=== PATIENT | male | born 1955 | race Caucasian/White ===

== ENCOUNTER 2021-08-24 18:10 | Outpatient (CLI) | payer MEDICARE | END 2021-08-24 18:11 | disposition EMS.NT | LOC: EMS 18:10 | DX: Z03.89 Encounter for observation for other suspected diseases and conditions ruled out (principal) ==

== ENCOUNTER 2023-11-23 16:38 | Inpatient (IN) | payer MEDICARE ==
[2023-11-23] MEDS ORDERED: IOVERSOL 320 100 ML VIAL IVP ONE (17:07)
--- NOTE | 2023-11-23 17:10 | ED Physician Documentation ---
PD HPI FOCAL NEURO - Stated complaint Stated Complaint: SLURRED SPEECH - Chief complaint Chief Complaint: Neuro - History obtained from History obtained from: Patient, Family - History of Present Illness Timing - onset: Yesterday Timing - details: Abrupt onset Severity of deficit: Mild Weakness: Face, Arm, Hand, Leg, Foot, Right Numbness: No: Face, Arm, Hand, Leg, Foot, Right, Left Associated symptoms: No: Headache, Nausea / vomiting, Seizure, Syncope, Fall, Head injury, Chest pain, Neck pain, Back pain, Fever Contributing factors: negative: Anticoagulated, Vascular dz, Atrial fibrillation, Prosthetic heart valve Baseline status: positive: A&OX3, ambulatory, indep Recently seen: Not recently seen - Additional information Additional information: Patient is a 68-year-old male who presents to the emergency department with right-sided weakness and slurred speech since 2 PM yesterday.'s not improved over the past 24 hours. Decided to come into the hospital today because he had not gotten better. He states he drinks alcohol daily, usually "a sixpack". Review of Systems Constitutional: denies: Fever, Chills GI: denies: Nausea, Vomiting, Diarrhea Skin: denies: Rash Musculoskeletal: denies: Neck pain, Back pain Neurologic: denies: Headache PD PAST MEDICAL HISTORY - Past Medical History Past Medical History: Yes Cardiovascular: Hypertension, High cholesterol Endocrine/Autoimmune: Type 2 diabetes : Kidney stones - Past Surgical History Past Surgical History: Yes Ortho: Shoulder arthroplasty - Present Medications Home Medications: Ambulatory Orders Medication Instructions Recorded Confirmed Atorvastatin [Lipitor] 40 DAILY 11/23/23 Empagliflozin [Jardiance] 12.5 mg DAILY 11/23/23 11/23/23 Gabapentin [Neurontin] 300 TID 11/23/23 Losartan [Cozaar] 25 DAILY 11/23/23 Meloxicam DAILY 11/23/23 Metformin HCl [Metformin ER BID 11/23/23 Gastric] Tamsulosin [Flomax] DAILY 11/23/23 - Allergies Allergies/Adverse Reactions: Allergies Allergy/AdvReac Type Severity Reaction Status Date / Time No Known Drug Allergies Allergy Verified 11/23/23 17:34 - Social History Does the pt smoke?: No Smoking Status: Never smoker Does the pt drink ETOH?: Yes Does the pt have substance abuse?: Yes Substance Use and Type: Marijuana - Immunizations Immunizations are current?: No PD ED PE NORMAL - Vitals Vital signs reviewed: Yes - General General: Alert and oriented X 3, No acute distress - HEENT HEENT: PERRL, Moist mucous membranes - Neck Neck: Supple, no meningeal sign - Cardiac Cardiac: RRR, Strong equal pulses - Respiratory Respiratory: No respiratory distress, Clear bilaterally - Abdomen Abdomen: Soft, Non tender, Non distended - Derm Derm: Warm and dry - Extremities Extremities: No edema, No calf tenderness / cord - Neuro Neuro: Alert and oriented X 3, Other (Right-sided facial droop, right-sided arm and leg weakness. No sensory deficits. Mild dysarthria) Eye Opening: Spontaneous Motor: Obeys Commands Verbal: Oriented GCS Score: 15 - Psych Psych: Normal mood, Normal affect NIHSS - Time Time: 17:00 - Level of Consciousness Level of consciousness: (0) Alert, Keenly responsive LOC Questions: (0) Answers both Q's correct LOC Commands: (0) Performs both correctly - Gaze Best Gaze: (0) Normal - Visual Visual: (0) No loss - Facial Palsy Facial Palsy: (1) Minor paralysis - Motor Arms (both separate) Motor Arm (right): (1) Drift Motor Arm (left): (0) No drift - Motor Legs (both separate) Motor Leg (right): (1) Drift Motor Leg (left): (0) No drift - Limb Ataxia Limb Ataxia: (0) Absent - Sensory Sensory: (0) Normal - Best Language Best Language: (0) No aphasia - Dysarthria Dysarthria: (1) [id number] dysarthria - Extinction and Inattention (formally neg Extinction and inattention: (0) No abnormality - Total Score/Results Total Score/Result: 4 Results - Vitals Vitals: Vital Signs - 24 hr 11/23/23 11/23/23 11/23/23 16:41 17:10 18:00 Temperature 36.8 C Heart Rate 81 80 71 Respiratory 16 16 16 Rate Blood Pressure 150/83 H 168/99 H 150/102 H O2 Saturation 96 95 95 11/23/23 11/23/23 11/23/23 18:30 19:00 20:00 Temperature Heart Rate 71 69 68 Respiratory 13 14 15 Rate Blood Pressure 162/95 H 153/83 H 153/99 H O2 Saturation 95 95 93 11/23/23 21:00 Temperature Heart Rate 67 Respiratory 16 Rate Blood Pressure 124/75 O2 Saturation 94 Oxygen O2 Source Room air - EKG (time done) 1934 EKG releavant findings:: EKG personally interpreted by author of this note. Relevant findings are: Rate: Rate (enter#) (72) Rhythm: NSR [place]: Normal Intervals: Prolonged ID QRS: Normal Ischemia: Normal ST segments, Q waves (III, avf) - Labs Labs: Laboratory Tests 11/23/23 11/23/23 11/23/23 17:07 17:07 17:07 WBC 4.9 RBC 5.89 Hgb 17.7 Hct 53.6 H MCV 91.0 MCH 30.1 MCHC 33.0 RDW 13.5 Plt Count 161 MPV 10.1 Neut # (Auto) 3.1 Lymph # (Auto) 1.4 L [place] # (Auto) 0.3 Eos # (Auto) 0.0 Baso # (Auto) 0.0 Absolute Nucleated RBC 0.00 Nucleated RBC % 0.0 PT 10.3 INR 1.0 APTT 30.6 Sodium 135 Potassium 4.0 Chloride 98 L Carbon Dioxide 28 Anion Gap 9.0 BUN 19 Creatinine 1.5 H Estimated GFR (MDRD) 46 L Glucose 266 H Calcium 9.8 Total Bilirubin 0.4 AST 12 ALT 19 Alkaline Phosphatase 61 Total Protein 6.7 Albumin 4.3 Globulin 2.4 Albumin/Globulin Ratio 1.8 Lipase 54 Urine Color Urine Clarity Urine pH Ur Specific [place] Urine Protein Urine Glucose (UA) Urine Ketones Urine Occult Blood Urine Nitrite Urine Bilirubin Urine Urobilinogen Ur Leukocyte Esterase Urine RBC Urine WBC Ur Squamous Epith Cells Urine Bacteria Ur Microscopic Review Urine Culture Comments Ethyl Alcohol 26.3 11/23/23 17:35 WBC RBC Hgb Hct MCV MCH MCHC RDW Plt Count MPV Neut # (Auto) Lymph # (Auto) [place] # (Auto) Eos # (Auto) Baso # (Auto) Absolute Nucleated RBC Nucleated RBC % PT INR APTT Sodium Potassium Chloride Carbon Dioxide Anion Gap BUN Creatinine Estimated GFR (MDRD) Glucose Calcium Total Bilirubin AST ALT Alkaline Phosphatase Total Protein Albumin Globulin Albumin/Globulin Ratio Lipase Urine Color LIGHT YELLOW Urine Clarity HAZY Urine pH 5.5 Ur Specific [place] 1.015 Urine Protein 30 H Urine Glucose (UA) >=1000 H Urine Ketones NEGATIVE Urine Occult Blood SMALL H Urine Nitrite NEGATIVE Urine Bilirubin NEGATIVE Urine Urobilinogen 0.2 (NORMAL) Ur Leukocyte Esterase NEGATIVE Urine RBC 6-10 H Urine WBC 4-5 Ur Squamous Epith Cells NONE SEEN Urine Bacteria None Seen Ur Microscopic Review INDICATED Urine Culture Comments NOT INDICATED Ethyl Alcohol - Rads (name of study) CT head Relevant Findings:: Final report received, See rad report CT angiogram head and neck Relevant Findings:: Final report received, See rad report PD Medical Decision Making - ED course Complexity details: reviewed results, re-evaluated patient, considered differential, d/w patient, d/w family, d/w automation consultant ED course: Patient is a 68-year-old male with dysarthria and right-sided weakness. Started yesterday. No acute findings on head CT or CT angiogram of the head and neck. EKG is sinus rhythm. He is not anticoagulated, but he did speak to his doctor today who told him to take 4 baby aspirin prior to arrival in the emergency department. Patient will need to be admitted to the hospital overnight, PT/OT consult in the morning and MRI of the brain tomorrow. Discussed the case with the hospitalist, Dr. Tovar who accepts. This document was made in part using voice recognition software. While efforts are made to proofread this document, sound alike and grammatical errors may occur. Departure - Departure Disposition: 66 [facility] DC/Xfer Clinical Impression: Cerebrovascular accident (CVA) Qualifiers: CVA mechanism: unspecified Qualified Code(s): I63.9 - Cerebral infarction, unspecified Condition: Stable Forms: PCP List
[2023-11-23 17:17] LABS: BASOPHILS % (AUTO) 0.6 %; EOSINOPHILS % (AUTO) 0.6 %; HCT - HEMATOCRIT 53.6 % (42.0-52.0); HGB - HEMOGLOBIN 17.7 g/dL (14.0-18.0); LYMPHOCYTES # (AUTO) 1.4 10^3/uL (1.5-3.5); LYMPHOCYTES % (AUTO) 29.1 %; MEAN CORPUSCULAR HEMOGLOBIN 30.1 pg (27.0-31.0); MEAN PLATELET VOLUME 10.1 fL (7.4-11.4); MONOCYTES # (AUTO) 0.3 10^3/uL (0.0-1.0); MONOCYTES % (AUTO) 6.5 %; NEUTROPHILS # (AUTO) 3.1 10^3/uL (1.5-6.6); NEUTROPHILS % (AUTO) 62.8 %; PLT - PLATELET COUNT 161 10^3/uL (130-450); RED BLOOD COUNT 5.89 10^6/uL (4.70-6.10); RED CELL DISTRIBUTION WIDTH 13.5 % (12.0-15.0); WHITE BLOOD COUNT 4.9 x10^3/uL (4.8-10.8)
[2023-11-23 17:27] LABS: PARTIAL THROMBOPLASTIN TIME 30.6 secs (24.9-33.3)
[2023-11-23 17:31] LABS: PT - PROTHROMBIN TIME 10.3 secs (9.9-12.6)
[2023-11-23 17:34] LABS: ALBUMIN 4.3 g/dL (3.2-5.5); ALBUMIN/GLOBULIN RATIO 1.8 (1.0-2.2); BILIRUBIN,TOTAL 0.4 mg/dL (0.2-1.0); CALCIUM 9.8 mg/dL (8.5-10.3); CREATININE 1.5 mg/dL (0.6-1.3); ETOH - ETHANOL 26.3 mg/dL; TOTAL PROTEIN 6.7 g/dL (6.4-8.9)
[2023-11-23 17:46] LABS: BILIRUBIN,URINE NEGATIVE (NEGATIVE); GLUCOSE, URINE (UA) >=1000 mg/dL (NEGATIVE); KETONES,URINE (UA) NEGATIVE (NEGATIVE); LEUKOCYTE ESTERASE, URINE NEGATIVE (NEGATIVE); NITRITE,URINE NEGATIVE (NEGATIVE); OCCULT BLOOD,URINE SMALL (NEGATIVE); PH,URINE 5.5 PH (5.0-7.5); PROTEIN,URINE 30 mg/dL (NEGATIVE); UROBILINOGEN,URINE 0.2 (NORMAL) E.U./dL (NORMAL)
[2023-11-23 17:47] LABS: CLARITY,URINE HAZY (CLEAR)
[2023-11-23 17:55] LABS: BACTERIA,URINE None Seen /HPF (None Seen); SQUAMOUS EPITHELIAL CELL,UR NONE SEEN (<= Few)
--- NOTE | 2023-11-23 19:03 | CT Report ---
PROCEDURE: Angio Head/Neck INDICATIONS: R sided weakness x 24 hours, slurred speech TECHNIQUE: Helical axial CT of the head and neck was obtained during the arterial phase of a intrave nous contrast injection utilizing an angiographic protocol. Multiplanar traditional and MIP reformat s were also obtained. Dose reduction techniques included either automated exposure control or adjustm ent of exposure parameters. COMPARISON: None. FINDINGS: Cerebral CT Angiogram: Internal carotid arteries: Calcified atherosclerotic plaque in the cavernous segments of both interna l carotid arteries results in moderate stenosis on bilaterally. No aneurysm or large vessel occlusion . Anterior cerebral arteries: Unremarkable. No significant stenosis. No occlusion. No aneurysm. Middle cerebral arteries: Unremarkable. No significant stenosis. No occlusion. No aneurysm. Posterior cerebral arteries: Unremarkable. No significant stenosis. No occlusion. No aneurysm. Basilar artery: Unremarkable. No significant stenosis. No occlusion. No aneurysm. Vertebral arteries: Unremarkable as visualized. Dural venous sinuses: Unremarkable given phase of enhancement. Other: Arterial phase appearance of the brain parenchyma is unremarkable. Neck CT Angiogram: Internal carotid arteries: Unremarkable. No significant stenosis. No dissection or occlusion. Common carotid arteries: Unremarkable. No significant stenosis. No dissection or occlusion. External carotid arteries: Unremarkable. No occlusion. Vertebral arteries: Unremarkable. No significant stenosis. No dissection or occlusion. Aortic Arch and Mediastinum: Partially visualized aortic arch unremarkable without evidence of aneury sm. Origins of the great vessels unremarkable. Other: Arterial phase soft tissues of the neck are unremarkable. IMPRESSION: No evidence of large vessel occlusion, aneurysm or vascular malformation. Atherosclerotic calcification the cavernous sections of both internal carotid arteries results in mod erate bilateral stenosis distally. No proximal ICA stenosis. Reviewed by: Javid Vargas MD on 11/23/2023 6:01 PM [place] Approved by: Javid Vargas MD on 11/23/2023 6:01 PM [facility] Station ID: [id number]
--- NOTE | 2023-11-23 19:13 | CT Report ---
PROCEDURE: Head WO INDICATIONS: R sided weakness x 24 hours, slurred speech TECHNIQUE: Noncontrast 4.5 mm thick angled axial sections acquired from the foramen magnum to the vertex. For r adiation dose reduction, the following was used: automated exposure control, adjustment of mA and/or kV according to patient size. COMPARISON: None. FINDINGS: Image quality: Diagnostic CSF spaces: Basal cisterns are patent. Lateral ventricles are symmetric. Volume: Vascular calcifications. Periventricular white matter disease is commonly seen with chronic m icroangiopathy. Volume loss is present. These findings are mild. Brain: No intracranial hemorrhage. Sumner-white differentiation is grossly maintained. Craniofacial structures: No displaced fracture. Sinuses are clear. Orbits are intact. IMPRESSION: No acute intracranial abnormality. If there is high concern for infarct, consider MRI. Reviewed by: Jabari Morrison MD on 11/23/2023 7:12 PM PST Approved by: Jabari Morrison MD on 11/23/2023 7:12 PM [facility] Station ID: [id number]
[2023-11-23] MEDS: ASPIRIN CHEW 81 MG TABLET PO STA (19:28)
[2023-11-23] MEDS: IOVERSOL 320 100 ML VIAL IVP ONE (20:24)
--- NOTE | 2023-11-23 23:44 | HISTORY & PHYSICAL EXAMINATION ---
Chief Complaint - Chief Complaint Chief Complaint: slurred speech History of Present Illness - Admitted From Admitted From:: home - History Obtained From History obtained from: patient + son Exam Limitations: telemedicine - History of Present Illness HPI Comment/Other: Mr Hall is a 68 yo M with hx DM II, HTN, BPH. Presents to ER with c/o right arm weakness with numbness and tingling in R hand/fingers, and slurred speech. Symptom onset ~noon yesterday (11/21). No prior history of CVA. Pt denies diplopia. He has blurred vision at times but this was unrelated to yesterday's event. He still has difficulty with speech since yesterday. Denies headache but has some mild dizziness "feels drunk". Denies cp, abd pain, n/v, f/c. Denies hearing loss. No facial droop noted (per his son at bedside). History - Past Medical History Cardiovascular: reports: Hypertension, High cholesterol Endocrine/Autoimmune: reports: Type 2 diabetes : reports: Benign prostate hypertrophy, Kidney stones - Past Surgical History Ortho: reports: Shoulder arthroplasty Meds/Allgy - Home Medications Home Medications: Ambulatory Orders Medication Instructions Recorded Confirmed Atorvastatin [Lipitor] 40 DAILY 11/23/23 Empagliflozin [Jardiance] 12.5 mg DAILY 11/23/23 11/23/23 Gabapentin [Neurontin] 300 TID 11/23/23 Losartan [Cozaar] 25 DAILY 11/23/23 Meloxicam DAILY 11/23/23 Metformin HCl [Metformin ER BID 11/23/23 Gastric] Tamsulosin [Flomax] DAILY 11/23/23 - Allergies Allergies/Adverse Reactions: Allergies Allergy/AdvReac Type Severity Reaction Status Date / Time No Known Drug Allergies Allergy Verified 11/23/23 17:34 Review of Systems - Constitutional Constitutional: denies: Fatigue, Fever, Chills - Eyes Eyes: reports: Blurred vision ((not new)). denies: Dipolpia - Ears, Nose & Throat Ears, Nose & Throat: denies: Ear pain, Hearing loss, Hearing aids - Cardiovascular Cariovascular: denies: Irregular heart rate, Palpitations, Chest pain - Respiratory Respiratory: denies: Cough, Sputum production, SOB at rest - Gastrointestinal Gastrointestinal: denies: Abdominal pain, Abdominal distention, Constipation, Diarrhea - Genitourinary Genitourinary: denies: Dysuria, Frequency - Musculoskeletal Musculoskeletal: denies: Muscle pain, Back pain - Integumentary Integumentary: denies: Rash, Pruritis - Neurological Neurological: reports: Focal weakness, Dizziness, Numbness, Slurred speech. denies: Headache - All Other Systems All Other Systems: reports: Reviewed and negative Prior Level of Functionality: ambulates independently, sometimes with a cane Exam - Vital Signs Reviewed Vital Signs: Yes Vital Signs: Vital Signs x48h Temp Pulse Resp BP Pulse Ox 11/23/23 21:00 67 16 124/75 94 11/23/23 20:00 68 15 153/99 H 93 11/23/23 19:00 69 14 153/83 H 95 11/23/23 18:30 71 13 162/95 H 95 11/23/23 18:00 71 16 150/102 H 95 11/23/23 17:10 80 16 168/99 H 95 11/23/23 16:41 36.8 C 81 16 150/83 H 96 - Physical Exam General Appearance: positive: No acute distress, Alert Eyes Bilateral: positive: Normal inspection ENT: positive: ENT inspection nml Neck: positive: Nml inspection Respiratory: positive: No respiratory distress Neurologic/Psychiatric: positive: Oriented x3, Mood/affect nml, Weakness (R arm weak), Sensory loss (R hand/fingers feel numb/tingling), Slurred/abnml speech. negative: Facial droop Conclusion/Plan - Lab Results Lab results reviewed: Yes Fish Bones: 11/23/23 17:07 11/23/23 17:07 - Diagnostic Imaging Results Diagnostic Imaging Results: positive: Final report reviewed - EKG Results EKG Interpreted Independently: Yes - Other Other Results/Comments: Assessment/Plan: Right arm weakness and numbness with slurred speech -Symptom onset >24 hours prior to presentation -Suspected CVA -CT head and CTA head/neck unremarkable -Pt took ASA 324 mg -Continue lipitor, high dose -MRI brain -Echocardiogram -PT/OT/[facility] consults DM II -Continue Lantus + SSI HTN -Hold, permissive HTN for now 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
[2023-11-23] MEDS ORDERED: LABETALOL 20 MG/4 ML SYRINGE IVP PRN (23:50)
[2023-11-23] MEDS ORDERED: SODIUM CHLORIDE FLUSH 0.9% 10 ML SYRINGE IVP PRN (23:55)
[2023-11-24] MEDS ORDERED: INSULIN LISPRO 300 UNIT/3 ML PEN SUBQ SCH (08:00)
[2023-11-24 08:42] LABS: ESTIMATED AVERAGE GLUCOSE 212 mg/dL (70-100)
[2023-11-24] MEDS ORDERED: INSULIN GLARGINE-YFGN 300 UNIT/3 ML PEN SUBQ SCH (09:00)
[2023-11-24] MEDS: SODIUM CHLORIDE FLUSH 0.9% 10 ML SYRINGE IVP SCH (09:05)
[2023-11-24] MEDS: ENOXAPARIN 40 MG/0.4 ML SYRINGE SUBQ SCH (09:31)
[2023-11-24] MEDS: ASPIRIN EC 81 MG TABLET PO SCH (09:32)
[2023-11-24] MEDS: INSULIN REGULAR HUMAN 300 UNIT/3 ML VIAL SUBQ SCH (12:06)
--- NOTE | 2023-11-24 12:15 | MRI Report ---
PROCEDURE: Brain WO INDICATIONS: stroke TECHNIQUE: Noncontrast axial T1 spin echo, axial T2 fast spin echo, sagittal and axial FLAIR, coronal T2 fast sp in echo, axial gradient echo, axial diffusion and ADC through the brain. COMPARISON: Correlation is made with CTs performed 11/23/2023. FINDINGS: Image quality: Diagnostic. CSF Spaces: Basal cisterns are patent. No extra-axial fluid collections. Ventricles are normal in size and shape. Brain: There is abnormal diffusion-weighted signal seen within the paramedian left cristobal, as on serie s 12 image 32. There is associated dark signal seen on the ADC map. There is developing T2-weighted s ignal seen at this site. Age-appropriate brain parenchymal volume loss and chronic small vessel ischemic change can be seen. No intracranial masses or hemorrhage. [place]/white matter interface is normal. Brainstem appears norm al. Normal intravascular flow voids are present. Skull and face: Calvarium has normal marrow signal. Orbits appear normal. Sinuses: Sinuses and mastoids are clear. IMPRESSION: There is a subacute infarction seen within the paramedian aspect of the left cristobal. Reviewed by: Souleymane Le MD on 11/24/2023 11:13 AM [place] Approved by: Souleymane Le MD on 11/24/2023 11:13 AM [facility] Station ID: [id number]
[2023-11-24] MEDS ORDERED: LABETALOL 20 MG/4 ML SYRINGE IVP PRN (15:09)
--- NOTE | 2023-11-24 15:47 | PROVIDER PROGRESS NOTE ---
Subjective - Prog Note Date Prog Note Date: 11/24/23 Prog Note Time: 15:46 - Subjective Pt reports feeling: Improved (States the right hand numbness and tingling still present but a bit improved, emotional lability noted, on insulin at home, sugars run ~160s on average. Denies pain, blurred vision, headache. Did ok getting OOB per staff. Spouse at bedside.) Subjective: This patient requires hospitalization to evaluate and treat acute CVA. Anticipated discharge is TBD - SNF vs home with home health Current Medications - Current Medications Current Medications: Active Medications Generic Name Dose Route Start Last Admin Trade Name Freq PRN Reason Stop Dose Admin Aspirin 81 mg 11/24/23 09:00 11/24/23 09:32 Aspirin Ec 81 Mg Tablet PO 81 mg DAILY JONAH Administration Atorvastatin Calcium 80 mg 11/24/23 21:00 Atorvastatin 40 Mg Tablet PO QPM JONAH Enoxaparin Sodium 40 mg 11/24/23 09:00 11/24/23 09:31 Enoxaparin 40 Mg/0.4 Ml Syringe SUBQ 40 mg DAILY JONAH Administration Insulin Human Lispro 1 - 5 unit 11/24/23 17:00 Insulin Lispro 300 Unit/3 Ml Pen SUBQ 0800,1200,1700,2100 [facility] Protocol Labetalol HCl 10 mg 11/24/23 15:09 Labetalol 20 Mg/4 Ml Syringe IVP Q10M PRN SBP >220 OR DBP>120 Sodium Chloride 10 ml 11/23/23 23:55 Sodium Chloride Flush 0.9% 10 Ml Syringe IVP PRN PRN NEEDED PER PROVIDER ORDERS Sodium Chloride 10 ml 11/24/23 01:00 11/24/23 09:32 Sodium Chloride Flush 0.9% 10 Ml Syringe IVP 10 ml 0100,0900,1700 JONAH Administration Atorvastatin [Lipitor] 40 mg PO HS 11/23/23 Empagliflozin [Jardiance] 12.5 mg DAILY 11/23/23 Gabapentin [Neurontin] 300 TID 11/23/23 Losartan [Cozaar] 25 mg PO DAILY 11/23/23 Meloxicam 15 mg PO DAILY 11/23/23 Metformin HCl [Metformin ER Gastric] 500 mg PO BIDWM 11/23/23 Tamsulosin [Flomax] 0.4 mg PO DAILY 11/23/23 Objective - Vital Signs/Intake & Output Reviewed Vital Signs: Yes Vital Signs: Vital Signs x48h Temp Pulse Pulse Pulse Pulse Resp BP 11/24/23 15:34 36.7 C 90 14 11/24/23 13:50 110 H 165/102 H 11/24/23 13:00 97 111 H 109 H 11/24/23 07:59 36.7 C 81 16 146/92 H BP BP BP BP Pulse Ox 11/24/23 15:34 167/118 H 94 11/24/23 13:50 11/24/23 13:00 196/121 H 190/110 H 181/112 H 11/24/23 07:59 96 Intake & Output: Intake & Output 11/21/23 11/22/23 11/23/23 11/24/23 23:59 23:59 23:59 23:59 Output Total 0 Balance 0 - Objective General Appearance: positive: No acute distress, Alert Eyes Bilateral: positive: Normal inspection, PERRL, EOMI (no nystagmus), No lid inflammation, No scleral icterus, Other (conjunctivae mildly injected bilaterally) ENT: positive: ENT inspection nml, Pharynx nml Neck: positive: Nml inspection Respiratory: positive: Chest non-tender, No respiratory distress, Breath sounds nml Cardiovascular: positive: Regular rate & rhythm, Other (murmur present) Peripheral Pulses: 2+ Dorsalis pedis (R), 2+ Dorsalis pedis (L) Abdomen: positive: Non-tender, No organomegaly, Nml bowel sounds, No distention Skin: positive: Color nml, No rash, Warm, Dry Extremities: positive: Non-tender, Nml appearance, No pedal edema Neurologic/Psychiatric: positive: Oriented x3, Motor nml (Strength: RUE 4/5, LUE 5/5, RLE 4/5, LLE 5/5. No tongue deviation. No facial droop.), Slurred/abnml speech (Dysarthria noted), Other (No pronator drift or peripheral vision impairment. Shoulder shrug uneven with lag on right. Facial sensation normal bilaterally. Sternocleidomastoid muscle strength against resistance decreased on right. Normal finger to nose. Rapid alternating movements are slow but seem intact. Emotionally labile.) - Lab Results Fish Bones: 11/23/23 17:07 03/03/24 17:07 Other Labs: Lab Results x24hrs 11/24/23 11/24/23 11/24/23 Range/Units 14:02 11:54 05:59 WBC (4.8-10.8) x10^3/uL RBC (4.70-6.10) 10^6/uL Hgb (14.0-18.0) g/dL Hct (42.0-52.0) % MCV (80.0-94.0) fL MCH (27.0-31.0) pg MCHC (32.0-36.0) g/dL RDW (12.0-15.0) % Plt Count (130-450) 10^3/uL MPV (7.4-11.4) fL Neut # (Auto) (1.5-6.6) 10^3/uL Lymph # (Auto) (1.5-3.5) 10^3/uL Cotton # (Auto) (0.0-1.0) 10^3/uL Eos # (Auto) (0.0-0.7) 10^3/uL Baso # (Auto) (0.0-0.1) 10^3/uL Absolute Nucleated RBC x10^3/uL Nucleated RBC % /100WBC PT (9.9-12.6) secs INR (0.8-1.2) APTT (24.9-33.3) secs Sodium (135-145) mmol/L Potassium (3.5-4.5) mmol/L Chloride (101-111) mmol/L Carbon Dioxide (21-32) mmol/L Anion Gap (6-13) BUN (6-20) mg/dL Creatinine (0.6-1.3) mg/dL Estimated GFR (MDRD) (>89) Glucose (74-104) mg/dL POC Whole Bld Glucose 138 H 133 H (70 - 100) mg/dL Estimat Average Glucose 212 H (70-100) mg/dL Hemoglobin A1c % 9.0 H (4.27-6.07) % Calcium (8.5-10.3) mg/dL Total Bilirubin (0.2-1.0) mg/dL AST (10-42) IU/L ALT (10-60) IU/L Alkaline Phosphatase (42-121) IU/L Total Protein (6.4-8.9) g/dL Albumin (3.2-5.5) g/dL Globulin (2.1-4.2) g/dL Albumin/Globulin Ratio (1.0-2.2) Lipase (11-82) U/L Urine Color Urine Clarity (CLEAR) Urine pH (5.0-7.5) PH Ur Specific [place] (1.002-1.030) Urine Protein (NEGATIVE) mg/dL Urine Glucose (UA) (NEGATIVE) mg/dL Urine Ketones (NEGATIVE) mg/dL Urine Occult Blood (NEGATIVE) Urine Nitrite (NEGATIVE) Urine Bilirubin (NEGATIVE) Urine Urobilinogen (NORMAL) E.U./dL Ur Leukocyte Esterase (NEGATIVE) Urine RBC (0-5) /HPF Urine WBC (0-3) /HPF Ur Squamous Epith Cells (<= Few) Urine Bacteria (None Seen) /HPF Ur Microscopic Review Urine Culture Comments Ethyl Alcohol mg/dL 11/23/23 11/23/23 11/23/23 Range/Units 17:35 17:07 17:07 WBC (4.8-10.8) x10^3/uL RBC (4.70-6.10) 10^6/uL Hgb (14.0-18.0) g/dL Hct (42.0-52.0) % MCV (80.0-94.0) fL MCH (27.0-31.0) pg MCHC (32.0-36.0) g/dL RDW (12.0-15.0) % Plt Count (130-450) 10^3/uL MPV (7.4-11.4) fL Neut # (Auto) (1.5-6.6) 10^3/uL Lymph # (Auto) (1.5-3.5) 10^3/uL Cotton # (Auto) (0.0-1.0) 10^3/uL Eos # (Auto) (0.0-0.7) 10^3/uL Baso # (Auto) (0.0-0.1) 10^3/uL Absolute Nucleated RBC x10^3/uL Nucleated RBC % /100WBC PT 10.3 (9.9-12.6) secs INR 1.0 (0.8-1.2) APTT 30.6 (24.9-33.3) secs Sodium 135 (135-145) mmol/L Potassium 4.0 (3.5-4.5) mmol/L Chloride 98 L (101-111) mmol/L Carbon Dioxide 28 (21-32) mmol/L Anion Gap 9.0 (6-13) BUN 19 (6-20) mg/dL Creatinine 1.5 H (0.6-1.3) mg/dL Estimated GFR (MDRD) 46 L (>89) Glucose 266 H (74-104) mg/dL POC Whole Bld Glucose (70 - 100) mg/dL Estimat Average Glucose (70-100) mg/dL Hemoglobin A1c % (4.27-6.07) % Calcium 9.8 (8.5-10.3) mg/dL Total Bilirubin 0.4 (0.2-1.0) mg/dL AST 12 (10-42) IU/L ALT 19 (10-60) IU/L Alkaline Phosphatase 61 (42-121) IU/L Total Protein 6.7 (6.4-8.9) g/dL Albumin 4.3 (3.2-5.5) g/dL Globulin 2.4 (2.1-4.2) g/dL Albumin/Globulin Ratio 1.8 (1.0-2.2) Lipase 54 (11-82) U/L Urine Color LIGHT YELLOW Urine Clarity HAZY (CLEAR) Urine pH 5.5 (5.0-7.5) PH Ur Specific [place] 1.015 (1.002-1.030) Urine Protein 30 H (NEGATIVE) mg/dL Urine Glucose (UA) >=1000 H (NEGATIVE) mg/dL Urine Ketones NEGATIVE (NEGATIVE) mg/dL Urine Occult Blood SMALL H (NEGATIVE) Urine Nitrite NEGATIVE (NEGATIVE) Urine Bilirubin NEGATIVE (NEGATIVE) Urine Urobilinogen 0.2 (NORMAL) (NORMAL) E.U./dL Ur Leukocyte Esterase NEGATIVE (NEGATIVE) Urine RBC 6-10 H (0-5) /HPF Urine WBC 4-5 (0-3) /HPF Ur Squamous Epith Cells NONE SEEN (<= Few) Urine Bacteria None Seen (None Seen) /HPF Ur Microscopic Review INDICATED Urine Culture Comments NOT INDICATED Ethyl Alcohol 26.3 mg/dL 11/23/23 Range/Units 17:07 WBC 4.9 (4.8-10.8) x10^3/uL RBC 5.89 (4.70-6.10) 10^6/uL Hgb 17.7 (14.0-18.0) g/dL Hct 53.6 H (42.0-52.0) % MCV 91.0 (80.0-94.0) fL MCH 30.1 (27.0-31.0) pg MCHC 33.0 (32.0-36.0) g/dL RDW 13.5 (12.0-15.0) % Plt Count 161 (130-450) 10^3/uL MPV 10.1 (7.4-11.4) fL Neut # (Auto) 3.1 (1.5-6.6) 10^3/uL Lymph # (Auto) 1.4 L (1.5-3.5) 10^3/uL Cotton # (Auto) 0.3 (0.0-1.0) 10^3/uL Eos # (Auto) 0.0 (0.0-0.7) 10^3/uL Baso # (Auto) 0.0 (0.0-0.1) 10^3/uL Absolute Nucleated RBC 0.00 x10^3/uL Nucleated RBC % 0.0 /100WBC PT (9.9-12.6) secs INR (0.8-1.2) APTT (24.9-33.3) secs Sodium (135-145) mmol/L Potassium (3.5-4.5) mmol/L Chloride (101-111) mmol/L Carbon Dioxide (21-32) mmol/L Anion Gap (6-13) BUN (6-20) mg/dL Creatinine (0.6-1.3) mg/dL Estimated GFR (MDRD) (>89) Glucose (74-104) mg/dL POC Whole Bld Glucose (70 - 100) mg/dL Estimat Average Glucose (70-100) mg/dL Hemoglobin A1c % (4.27-6.07) % Calcium (8.5-10.3) mg/dL Total Bilirubin (0.2-1.0) mg/dL AST (10-42) IU/L ALT (10-60) IU/L Alkaline Phosphatase (42-121) IU/L Total Protein (6.4-8.9) g/dL Albumin (3.2-5.5) g/dL Globulin (2.1-4.2) g/dL Albumin/Globulin Ratio (1.0-2.2) Lipase (11-82) U/L Urine Color Urine Clarity (CLEAR) Urine pH (5.0-7.5) PH Ur Specific [place] (1.002-1.030) Urine Protein (NEGATIVE) mg/dL Urine Glucose (UA) (NEGATIVE) mg/dL Urine Ketones (NEGATIVE) mg/dL Urine Occult Blood (NEGATIVE) Urine Nitrite (NEGATIVE) Urine Bilirubin (NEGATIVE) Urine Urobilinogen (NORMAL) E.U./dL Ur Leukocyte Esterase (NEGATIVE) Urine RBC (0-5) /HPF Urine WBC (0-3) /HPF Ur Squamous Epith Cells (<= Few) Urine Bacteria (None Seen) /HPF Ur Microscopic Review Urine Culture Comments Ethyl Alcohol mg/dL - Diagnostic Imaging Diagnostic Imaging Results: positive: Final report reviewed Diagnostic Imaging Comments: CT head negative. CT angio head/neck with no significant stenosis. ABX Reporting Has patient been on IV antibiotics over the past 48 hours?: No Assessment/Plan - Problem List (1) Cerebrovascular accident (CVA) Impression: Presented with R hand numbness/tingling/weakness and slurred speech. His hand feels a bit better and he has mild dysarthria on exam today. He is noted to be emotionally labile. Risk factors for stroke include: HTN, DM2, hyperlipidemia. CT head neg. CT angio head/neck neg for significant stenosis. MRI brain revealed acute infarct in left cristobal Plan: Continue ASA (was not on ASA at home) Continue statin Hold BP meds for permissive HTN Attempt euglycemia Echo done, results pending Continue tele Outpatient referral for Holter/event monitor to eval for afib Outpatient referral to evaluate for VELMA as this can increase CVA risk A1c 9.0 Lipid panel not done as already on statin PT/OT/Speech evals Qualifiers: CVA mechanism: unspecified Qualified Code(s): I63.9 - Cerebral infarction, unspecified (2) Diabetes type 2, uncontrolled Impression: A1c 9.0. On insulin at home. Plan: Continue insulin protocol, aim for sugar control in setting of CVA Qualifiers: Glycemic state: with hyperglycemia Qualified Code(s): E11.65 - Type 2 diabetes mellitus with hyperglycemia (3) Hypertension associated with diabetes Impression: On losartan at home. Plan: hold losartan for permissive HTN (4) Hyperlipidemia Impression: on statin at home. Plan: continue statin Qualifiers: Hyperlipidemia type: mixed hyperlipidemia Qualified Code(s): E78.2 - Mixed hyperlipidemia
[2023-11-24] MEDS: INSULIN LISPRO 300 UNIT/3 ML PEN SUBQ SCH (18:27)
[2023-11-24] MEDS: ATORVASTATIN 40 MG TABLET PO SCH (20:58)
[2023-11-24] MEDS: ACETAMINOPHEN 325 MG TABLET PO PRN (20:58)
[2023-11-25 06:29] LABS: BASOPHILS % (AUTO) 0.5 %; EOSINOPHILS % (AUTO) 0.5 %; HCT - HEMATOCRIT 54.3 % (42.0-52.0); HGB - HEMOGLOBIN 18.5 g/dL (14.0-18.0); LYMPHOCYTES # (AUTO) 1.7 10^3/uL (1.5-3.5); MEAN CORPUSCULAR HEMOGLOBIN 30.4 pg (27.0-31.0); MEAN CORPUSCULAR HGB CONC 34.1 g/dL (32.0-36.0); MEAN CORPUSCULAR VOLUME 89.3 fL (80.0-94.0); MEAN PLATELET VOLUME 10.7 fL (7.4-11.4); MONOCYTES # (AUTO) 0.5 10^3/uL (0.0-1.0); MONOCYTES % (AUTO) 7.7 %; NEUTROPHILS % (AUTO) 64.1 %; PLT - PLATELET COUNT 164 10^3/uL (130-450); RED BLOOD COUNT 6.08 10^6/uL (4.70-6.10); RED CELL DISTRIBUTION WIDTH 13.4 % (12.0-15.0); WHITE BLOOD COUNT 6.2 x10^3/uL (4.8-10.8)
[2023-11-25 06:39] LABS: CALCIUM 9.8 mg/dL (8.5-10.3); CREATININE 1.2 mg/dL (0.6-1.3); MAGNESIUM 1.7 mg/dL (1.7-2.3); PHOSPHORUS 3.1 mg/dL (2.5-5.0); POTASSIUM 3.9 mmol/L (3.5-4.5)
--- NOTE | 2023-11-25 11:00 | PHARMACY PROGRESS NOTE ---
- Best Possible Medication History Admit Date and Time: 11/24/23 1023 Processed by: Nursing Medications reviewed in ED?: Yes Medication History completed: No Patient Interview: Pt unable to participate Secondary Source(s): Insurance records (X4 ATTEMPTS FOR PT MED REC. MED REC COMPLETED UPON INSURNACE HX.) As the person ultimately responsible for medication therapy, providers are able to order a medication from an existing home medication list in [facility] via the "Reconcile Routine" prior to Confirmation of that medication by web support engineer. Such practice is discouraged except when the physician, in their clinical j udgment, deems that a medical need exists for a medication without regard to previous use.
[2023-11-25] MEDS: INSULIN LISPRO 300 UNIT/3 ML PEN SUBQ SCH (11:46)
--- NOTE | 2023-11-25 13:26 | Discharge Plan ---
Discharge Plan Problem Reviewed?: Yes Disposition: Home, Self Care Prescriptions: Aspirin EC [Ecotrin] 81 mg PO DAILY #30 tab Clopidogrel [Plavix] 75 mg PO DAILY 21 Days #21 tab Diet: Diabetic (Low sodium (<2g per day), low fat) Activity Restrictions: Activity as Tolerated Shower Restrictions: No Driving Restrictions: No Weight Bearing: Full Weight Instruction Topics: Stroke Ischemic, Clopidogrel Bisulfate Oral tablet Health Concerns: Please follow up with your PCP for better blood pressure control, better DM control. Avoid alcohol, eat healthy diet with low salt, low fat, please excises regularly, at least 3 times a week, 30min to 1hour each time Plan of Treatment: You will be on two antiplatelets: Aspirin and Plavix, take both for 21 days, then just take aspirin for stroke secondary prevention. Please hold Meloxicam when you take Plavix to avoid increased risk of bleeding. Please continue take Lipitor for cholesterol control Continue take your antihypertensive medication and DM treatment Please follow up with outpatient physical therapy and occupational therapy. Speech therapy is referred as well. Please follow up with your PCP, if needed, neurology referral may be indicated Care Goals: Regain full function of using right arm, Regain full function of speech Assessment: Medical stable NIHSS at discharge 2 (1 for minor facial asymmetry and 1 for right arm weakness/numbness) Additional Instructions or Follow Up instructions: Follow up with outpatient PT/OT/ST Follow up with PCP Follow-Up Care: Outpatient Rehab - PT, Outpatient Rehab - OT, Outpatient Rehab - ST No Smoking: If you smoke, Please STOP! Call for help.
[2023-11-25] MEDS: CLOPIDOGREL 75 MG TABLET PO ONE (13:48)
--- NOTE | 2023-11-25 13:57 | DISCHARGE SUMMARY ---
Discharge Summary Admit Date: 11/23/23 Discharge Date: 11/25/23 Discharging Provider: Sal Fay Primary Care Provider: Mac Saunders Code Status: Attempt Resuscitation Condition at Discharge: Stable Discharge Disposition: 01 Home, Self Care - DIAGNOSES Admission Diagnoses: Suspect CVA DM2 HTN CKD stage II Discharge Diagnoses with Status of Each Condition: CVA DM2 HTN CKD stage II - HPI History of Present Illness: 68 years old male with history of DM2, HTN BPH presented to the ED on 11/23/2023 with chief complaints of right arm weakness with numbness and tingling in the right hand and fingers, along with slurred speech. Symptoms started at noon on 11/22/2023. No prior history of CVA. Patient denies diplopia. He has blurred vision at times but it was an irrelevant to this events. He stil has difficulty with speech since the day prior admission. Denies headache but has some mild dizziness and of pelvis drunk. Denies chest pain abdominal pain nausea vomiting. Denies hearing loss no facial drooping noted per his son at bedside - HOSPITAL COURSE Hospital Course: During hospital stay, patient right arm weakness gradually improved, slurred speech improved to almost his baseline condition. Patient still complains of right hand and finger numbness tingling. Physical therapy and Occupational Therapy evaluation, with goal of regaining patient baseline function fully, recommend patient continue with outpatient PT OT and speech therapy. During hospital stay patient was on permissive hypertension, blood pressure ranged about 1 40-1 70 systolic. Patient received aspirin. Received 1 dose of 300mg Plavix within 72 hours of symptoms onset. Patient is discharged aspirin 81 mg and Plavix 75 mg dual antiplatelet treatment for 21 days, recommend patient continue with aspirin lifelong for secondary CVA prevention. Recommend patient to have good DM and hypertension control Echo showed normal EF, no valvular abnormality noted no abnormal shunt noted. MRI evidenced subacute infarct on left cristobal - ALLERGIES Allergies/Adverse Reactions: Allergies Allergy/AdvReac Type Severity Reaction Status Date / Time No Known Drug Allergies Allergy Verified 11/23/23 17:34 - MEDICATIONS Home Medications: Ambulatory Orders Medication Instructions Recorded Confirmed Atorvastatin [Lipitor] 40 mg PO HS 11/23/23 11/24/23 Empagliflozin [Jardiance] 12.5 mg DAILY 11/23/23 11/23/23 Gabapentin [Neurontin] 300 TID 11/23/23 Losartan [Cozaar] 25 mg PO DAILY 11/23/23 11/24/23 Metformin HCl [Metformin ER 500 mg PO BIDWM 11/23/23 11/24/23 Gastric] Tamsulosin [Flomax] 0.4 mg PO DAILY 11/23/23 11/24/23 Aspirin EC [Ecotrin] 81 mg PO DAILY #30 tab 11/25/23 Atorvastatin [Lipitor] 40 mg PO QPM tab 11/25/23 Clopidogrel [Plavix] 75 mg PO DAILY 21 Days #21 tab 11/25/23 Insulin Lispro [Humalog Kwikpen See Rx Instructions .ROUTE .COMPLEX 11/25/23 11/25/23 U-100] Insulin NPH Human Isophane 80 units SUBQ BIDWM 11/25/23 11/25/23 [Humulin N Kwikpen] - PHYSICAL EXAM AT DISCHARGE General Appearance: positive: No acute distress, Alert Eyes Bilateral: positive: PERRL, EOMI ENT: positive: ENT inspection nml Neck: positive: Nml inspection Respiratory: positive: Chest non-tender Cardiovascular: positive: Regular rate & rhythm Peripheral Pulses: positive: 2+ Abdomen: positive: Non-tender Back: positive: Nml inspection Skin: positive: Color nml Extremities: positive: Non-tender, Full ROM, No pedal edema Neurologic/Psychiatric: positive: Oriented x3, CN's nml (2-12), Other (NIHSS at discharge was 2 (1 for mild facial asymmetry and 1 for right arm weakness numbness)) - LABS Result Diagrams: 11/25/23 05:17 11/25/23 05:17 - DIAGNOSTIC IMAGING Diagnostic Imaging Results: Final report reviewed - FOLLOW UP Follow Up: PCP - TIME SPENT Time Spent in Discharge (Minutes): 55
[2023-11-25 14:05] VITALS: BP 159/101; O2SAT 98
[2023-11-25] MEDS ORDERED: ATORVASTATIN 40 MG TABLET PO SCH (21:00)
[2023-11-26] MEDS ORDERED: CLOPIDOGREL 75 MG TABLET PO SCH (09:00)
== END 2023-11-25 14:00 | disposition home or self-care (01) | DRG 65 ==
LOC: ED 16:38 → MS2 23:55 → OBSVTOIN 11-24 10:23
PROVIDERS: ADMIT Student in an Organized Health Care Education/Training Program; ATTEND Internal Medicine
DX: I63.9 Cerebral infarction, unspecified (principal); G81.91 Hemiplegia, unspecified affecting right dominant side; R29.704 NIHSS score 4; E11.22 Type 2 diabetes mellitus with diabetic chronic kidney disease; R94.31 Abnormal electrocardiogram [ECG] [EKG]; E11.65 Type 2 diabetes mellitus with hyperglycemia; I12.9 Hypertensive chronic kidney disease with stage 1 through stage 4 chronic kidney disease, or unspecified chronic kidney disease; N18.2 Chronic kidney disease, stage 2 (mild); N40.0 Benign prostatic hyperplasia without lower urinary tract symptoms; E78.00 Pure hypercholesterolemia, unspecified; R47.1 Dysarthria and anarthria; R20.0 Anesthesia of skin; R20.2 Paresthesia of skin; Z79.84 Long term (current) use of oral hypoglycemic drugs; Z79.899 Other long term (current) drug therapy
CPT/HCPCS: 36415; 70450; 70496; 70498; 70551; 80048; 80053; 81001; 83036; 83690; 83735; 84100; 85025; 85610; 85730; 93005; 93307; 96372; 97116; 97162; 97166; 99285; A9270; G0378; G0480; J1650; Q9967; 81003; 82077; 87086